=== PATIENT | female | born 1995 | race Caucasian/White ===

== ENCOUNTER 2022-12-23 20:35 | Emergency (ER) | payer OTHER ==
[~2022-12-23] VITALS: Ht 170.2 cm; Wt 56.4 kg
[2022-12-23 20:47] VITALS: BP 128/59
[2022-12-23] MEDS ORDERED: ibuprofen tablet 400 MG TABLET PO ONE (22:20)
== END 2022-12-24 02:18 | disposition home or self-care (01) ==
LOC: ER 20:38
DX: S93.402A Sprain of unspecified ligament of left ankle, initial encounter (principal); S70.12XA Contusion of left thigh, initial encounter; Z87.891 Personal history of nicotine dependence; X50.1XXA Overexertion from prolonged static or awkward postures, initial encounter; Y93.89 Activity, other specified; Y92.89 Other specified places as the place of occurrence of the external cause; Y99.8 Other external cause status
CPT/HCPCS: 73610; 73630; 99284; L4360